=== PATIENT | male | born 1960 | race Caucasian/White ===

== ENCOUNTER 2017-08-24 17:56 | Emergency (ER) | payer MEDICARE ==
[2017-08-24] MEDS ORDERED: KETOROLAC TROMETHAMINE 60 MG/2 ML VIAL IM ONE ×2 (18:16→18:17)
[2017-08-24] MEDS ORDERED: ORPHENADRINE CITRATE 30 MG/ML VIAL IM ONE (18:16)
[2017-08-24] MEDS ORDERED: ORPHENADRINE CITRATE 30 MG/ML VIAL ONE (18:18)
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
[2017-08-24 19:06] VITALS: BP 146/88
== END 2017-08-24 19:05 | disposition home or self-care (01) ==
LOC: ER 17:56
DX: M62.838 Other muscle spasm (principal); M50.30 Other cervical disc degeneration, unspecified cervical region